=== PATIENT | female | born 1970 | race African-American/Black ===

== ENCOUNTER 2018-01-24 13:25 | Emergency (ER) | payer MEDICAID ==
[~2018-01-24] VITALS: Ht 162.6 cm; Wt 147.0 kg
[~2018-01-24 13:25] MED LIST: LISI40TA4 PO
[2018-01-24] MEDS ORDERED: ACETAMINOPHEN 500MG TABLET PO ONE (15:00)
[2018-01-24] MEDS ORDERED: IBUPROFEN 400MG TABLET PO ONE (15:00)
[2018-01-24 15:15] VITALS: BP 110/75
== END 2018-01-24 17:01 | disposition home or self-care (01) ==
LOC: ER 14:02
DX: S40.012A Contusion of left shoulder, initial encounter (principal); S80.02XA Contusion of left knee, initial encounter; I10 Essential (primary) hypertension; E03.9 Hypothyroidism, unspecified; F17.200 Nicotine dependence, unspecified, uncomplicated; W01.0XXA Fall on same level from slipping, tripping and stumbling without subsequent striking against object, initial encounter; Y93.89 Activity, other specified; Y92.481 Parking lot as the place of occurrence of the external cause; Y99.8 Other external cause status
CPT/HCPCS: 73030; 73562; 81025; 99284

== ENCOUNTER 2019-03-09 14:00 | Emergency (ER) | payer MEDICAID ==
[~2019-03-09] VITALS: Ht 162.6 cm; Wt 116.0 kg
[2019-03-09 14:08] VITALS: BP 119/73
[2019-03-09] MEDS ORDERED: KETOROLAC 60MG/2ML VIAL IM ONE (18:00)
== END 2019-03-09 18:41 | disposition left against medical advice (07) ==
LOC: ER 14:44
DX: M54.2 Cervicalgia (principal); M79.602 Pain in left arm; M79.605 Pain in left leg
CPT/HCPCS: 99283; J1885

== ENCOUNTER 2023-03-14 13:48 | Emergency (ER) | payer MEDICAID ==
[~2023-03-14] VITALS: Ht 165.1 cm; Wt 113.0 kg
[~2023-03-14 13:48] MED LIST changes: +LISI40TA13 PO; -LISI40TA4 PO
[2023-03-14 13:57] VITALS: BP 132/98; PULSE 90; RESP 18; TEMP 98.8; O2SAT 97
[2023-03-14] MEDS ORDERED: TOPUD MT ×3 (14:56→15:23)
[2023-03-14] MEDS ORDERED: OFLO5DRO4 EACH EAR ×2 (14:56)
[2023-03-14] MEDS ORDERED: OFLO5DRO4 LEFT EAR (15:23)
== END 2023-03-14 15:29 | disposition home or self-care (01) ==
LOC: ER 13:48
DX: H60.92 Unspecified otitis externa, left ear (principal); I10 Essential (primary) hypertension; Z86.39 Personal history of other endocrine, nutritional and metabolic disease
CPT/HCPCS: 99283